=== PATIENT | male | born 1980 | race African-American/Black ===

== ENCOUNTER 2020-02-14 11:23 | Emergency (ER) | payer MEDICARE, MEDICAID ==
[~2020-02-14] VITALS: Ht 188 cm; Wt 99.8 kg
[~2020-02-14 11:23] MED LIST: IBUPROFEN600 MG ORAL; NORCO 5-325 TA1 EACH ORAL
[2020-02-14 11:39] VITALS: BP 113/62
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
[2020-02-14 13:25] VITALS: BP 116/68
--- NOTE | 2020-02-14 13:25 | NUR ---
ER DISCHARGE NOTE: Patient is cleared to be discharged per ERMD, pt is aox4, on room air, with stable vital signs. pt was given dc and prescription instructions, pt was able to verbalize understanding, pt id band removed. pt is able to ambulate with steady gait. pt took all belongings.
--- NOTE | 2020-02-14 13:33 | Diagnostic Imaging Report ---
Indication: Pain, trauma Technique: 3 views right hand Comparison: none Findings: There is a comminuted fracture, minimally displaced, of the third metatarsal head and neck. This is somewhat impacted. There is an old healed fracture deformity of the fifth metacarpal. The joint spaces are preserved. Small calcific density projects adjacent to the ulnar styloid, significance uncertain. Impression: Positive for third metacarpal fracture
== END 2020-02-14 13:25 | disposition home or self-care (01) ==
LOC: EMR 12:41
DX: S92.331A Displaced fracture of third metatarsal bone, right foot, initial encounter for closed fracture (principal); W22.8XXA Striking against or struck by other objects, initial encounter; Y93.89 Activity, other specified; Y92.9 Unspecified place or not applicable
CPT/HCPCS: 29125; 99283